=== PATIENT | female | born 1960 | race Caucasian/White ===

== ENCOUNTER → 2021-11-14 | Day surgery (SDC) | payer OTHER | LOC: SDC-PAIN 07:51 | PROVIDERS: ATTEND Psychiatry & Neurology Pain Medicine | DX: Z53.09 Procedure and treatment not carried out because of other contraindication (principal); M54.16 Radiculopathy, lumbar region; E11.9 Type 2 diabetes mellitus without complications | CPT/HCPCS: 82947 ==